=== PATIENT | female | born 1970 | race Asian ===

== ENCOUNTER 2016-08-21 12:11 | Inpatient (IN) | payer OTHER ==
[~2016-08-21] VITALS: Ht 162.6 cm; Wt 46.6 kg
[2016-08-21] MEDS ORDERED: SODIUM CHLORIDE 0.9% 1,000 ML IV ONE (12:34)
[2016-08-21] MEDS ORDERED: FAMOTIDINE 20 MG/2 ML ONE (12:46)
[2016-08-21] MEDS ORDERED: MAALOX/HYOSCYAMINE/LIDOCAINE 45 ML BOTTLE ONE (12:46)
[2016-08-21] MEDS ORDERED: MORPHINE SULFATE 4 MG/ML, 1ML ONE ×2 (12:46→13:33)
[2016-08-21] MEDS: MORPHINE SULFATE 4 MG/ML, 1ML IVPush PRN ×4 (12:54→21:00)
[2016-08-21] MEDS ORDERED: ONDANSETRON 2MG/ML, 2ML ONE (12:55)
[2016-08-21] MEDS ORDERED: FAMOTIDINE 20 MG/2 ML IVP ONE (13:00)
[2016-08-21] MEDS ORDERED: MAALOX/HYOSCYAMINE/LIDOCAINE 45 ML BOTTLE PO ONE (13:00)
[2016-08-21] MEDS ORDERED: ONDANSETRON 2MG/ML, 2ML IVPush ONE (13:00)
[2016-08-21 14:04] LABS: ASPARTATE AMINO TRANSFERASE 32 U/L (15-37); BLOOD UREA NITROGEN 13 mg/dL (7-18)
[2016-08-21 14:08] LABS: DIFF TOTAL CELLS COUNTED 100 CELL DIFF
[2016-08-21 14:18] LABS: ANISOCYTOSIS 1+
[2016-08-21 16:26] VITALS: BP 160/94
[2016-08-21 16:29] VITALS: BP 160/94
[2016-08-21] MEDS ORDERED: DOCUSATE 100 MG CAPSULE PO PRN (17:30)
[2016-08-21] MEDS ORDERED: BISACODYL 10 MG SUPP PR PRN (17:30)
[2016-08-21] MEDS ORDERED: ACETAMINOPHEN 325 MG TABLET PO PRN (17:30)
[2016-08-21] MEDS ORDERED: FENO145T32 PO (17:39)
[2016-08-21] MEDS ORDERED: METF10002 PO (17:39)
[2016-08-21] MEDS ORDERED: SIMV10TA3 PO (17:39)
[2016-08-21] MEDS ORDERED: GABA100C8 PO (17:39)
[2016-08-21] MEDS ORDERED: POTASSIUM CHLORIDE 20 MEQ TAB.ER.PRT PO ONE (18:00)
[2016-08-21] MEDS ORDERED: LABETALOL 5MG/ML, 20ML IVPush PRN (18:00)
[2016-08-21] MEDS: ENOXAPARIN 40 MG/0.4 ML SQ SCH (18:40)
[2016-08-21] MEDS: SODIUM CHLORIDE 0.9% 1,000 ML IV SCH (18:40)
[2016-08-21] MEDS: INSULIN REGULAR 100 UNITS/ML, 3ML VIAL SQ-INSULIN SCH ×2 (18:41→21:00)
[2016-08-21 20:30] VITALS: BP 166/84
[2016-08-21] MEDS: LACTOBACILLUS 1GM/ PACKET PO SCH (21:00)
[2016-08-21] MEDS: GABAPENTIN 100 MG CAPSULE PO SCH (21:01)
[2016-08-21] MEDS: metFORMIN 500 MG TABLET PO SCH (21:01)
[2016-08-22] MEDS: MORPHINE SULFATE 4 MG/ML, 1ML IVPush PRN ×4 (00:31→21:08)
[2016-08-22 01:32] VITALS: BP 122/67
[2016-08-22] MEDS: LACTOBACILLUS 1GM/ PACKET PO SCH ×4 (05:19→21:08)
[2016-08-22 07:05] LABS: ASPARTATE AMINO TRANSFERASE 19 U/L (15-37)
[2016-08-22 07:22] VITALS: BP 129/77
[2016-08-22 07:23] LABS: BLOOD UREA NITROGEN 5 mg/dL (7-18)
[2016-08-22] MEDS: metFORMIN 500 MG TABLET PO SCH ×2 (07:29→21:08)
[2016-08-22] MEDS: FENOFIBRATE 145 MG TABLET PO SCH (07:29)
[2016-08-22] MEDS: INSULIN REGULAR 100 UNITS/ML, 3ML VIAL SQ-INSULIN SCH ×4 (07:30→21:07)
[2016-08-22 10:21] LABS: HEMOGLOBIN 17.5 g/dL (11.7-16.4)
[2016-08-22] MEDS ORDERED: POTASSIUM CHLORIDE 20 MEQ TAB.ER.PRT PO ONE (10:30)
[2016-08-22 10:43] LABS: DIFF TOTAL CELLS COUNTED 100 CELL DIFF
[2016-08-22 10:45] LABS: ANISOCYTOSIS 1+; VERIFY COUNTS? YES
[2016-08-22] MEDS: SODIUM CHLORIDE 0.9% 1,000 ML IV SCH ×2 (11:38→17:46)
[2016-08-22 13:36] VITALS: BP 153/91
[2016-08-22] MEDS: ENOXAPARIN 40 MG/0.4 ML SQ SCH (16:29)
[2016-08-22 18:57] VITALS: BP 128/79
[2016-08-22] MEDS: GABAPENTIN 100 MG CAPSULE PO SCH (21:00)
[2016-08-22] MEDS ORDERED: ONDANSETRON 2MG/ML, 2ML IVPush PRN (21:00)
[2016-08-22] MEDS ORDERED: SIMVASTATIN 10 MG TABLET PO SCH (21:00)
[2016-08-23] MEDS: SODIUM CHLORIDE 0.9% 1,000 ML IV SCH ×2 (00:43→08:59)
[2016-08-23 02:59] VITALS: BP 112/71
[2016-08-23] MEDS: LACTOBACILLUS 1GM/ PACKET PO SCH ×2 (05:14→11:29)
[2016-08-23] MEDS: MORPHINE SULFATE 4 MG/ML, 1ML IVPush PRN ×3 (06:17→13:31)
[2016-08-23 06:55] VITALS: BP 111/66
[2016-08-23] MEDS: INSULIN REGULAR 100 UNITS/ML, 3ML VIAL SQ-INSULIN SCH ×2 (07:31→11:33)
[2016-08-23] MEDS: metFORMIN 500 MG TABLET PO SCH (07:32)
[2016-08-23] MEDS: FENOFIBRATE 145 MG TABLET PO SCH (07:32)
[2016-08-23 12:19] LABS: HEMOGLOBIN 15.2 g/dL (11.7-16.4)
[2016-08-23 12:24] LABS: BLOOD UREA NITROGEN 6 mg/dL (7-18)
[2016-08-23 12:38] LABS: DIFF TOTAL CELLS COUNTED 100 CELL DIFF
[2016-08-23 12:40] LABS: VERIFY COUNTS? YES
[2016-08-23 12:53] VITALS: BP 144/86
[2016-08-23 13:10] LABS: ASPARTATE AMINO TRANSFERASE 52 U/L (15-37)
[2016-08-23] MEDS ORDERED: OMEG1CAP6 PO (13:54)
[2016-08-23] MEDS ORDERED: ASPI-621 PO (14:03)
[2016-08-23] MEDS ORDERED: SIMV10TA3 PO (14:07)
== END 2016-08-23 16:06 | disposition home or self-care (01) | DRG 444 ==
LOC: ED 13:45 → EDIP 15:36 → 3NE 16:06 → DCLOUNGE 08-23 15:53
PROVIDERS: ADMIT Internal Medicine; ATTEND Internal Medicine
PROC: 0T9B70Z Drainage of Bladder with Drainage Device, Via Natural or Artificial Opening (ICD-10-PCS; principal; 2016-08-21)
DX: K80.20 Calculus of gallbladder without cholecystitis without obstruction (principal); K85.90 Acute pancreatitis without necrosis or infection, unspecified; E87.1 Hypo-osmolality and hyponatremia; E78.1 Pure hyperglyceridemia; E87.6 Hypokalemia; Z66 Do not resuscitate; K52.9 Noninfective gastroenteritis and colitis, unspecified; K21.9 Gastro-esophageal reflux disease without esophagitis; E88.81 Metabolic syndrome and other insulin resistance; I10 Essential (primary) hypertension; E11.42 Type 2 diabetes mellitus with diabetic polyneuropathy; E78.00 Pure hypercholesterolemia, unspecified; E78.5 Hyperlipidemia, unspecified; E86.1 Hypovolemia; K76.0 Fatty (change of) liver, not elsewhere classified; E11.65 Type 2 diabetes mellitus with hyperglycemia
CPT/HCPCS: 36415; 74000; 76700; 80053; 80061; 81001; 82962; 83036; 83690; 83735; 84100; 84443; 85025; 85610; 86704; 86706; 86708; 86803; 87086; 87147; 87340; 96361; 96374; 96375; J1650; J1815; J2405; J7030; S0028

== ENCOUNTER 2016-11-29 20:59 | Emergency (ER) | payer OTHER ==
[~2016-11-29] VITALS: Ht 162.6 cm; Wt 56.0 kg
[~2016-11-29 20:59] MED LIST: ASPI-621 PO; FENO145T32 PO; GABA-826 PO; METF10002 PO; OMEG1CAP6 PO; SIMV10TA3 PO
[2016-11-29] MEDS ORDERED: MORPHINE SULFATE 4 MG/ML, 1ML ONE ×2 (22:22→23:44)
[2016-11-29] MEDS ORDERED: ONDANSETRON 2MG/ML, 2ML ONE (22:22)
[2016-11-29] MEDS: MORPHINE SULFATE 4 MG/ML, 1ML IVPush PRN ×2 (22:25→23:46)
[2016-11-29] MEDS ORDERED: ONDANSETRON 2MG/ML, 2ML IVPush ONE (22:30)
[2016-11-29 22:50] LABS: BLOOD UREA NITROGEN 17 mg/dL (7-18)
[2016-11-29 23:19] LABS: ASPARTATE AMINO TRANSFERASE 145 U/L (15-37)
[2016-11-29 23:48] VITALS: BP 137/70
== END 2016-11-30 00:29 | disposition home or self-care (01) ==
LOC: ED 23:23
DX: K80.70 Calculus of gallbladder and bile duct without cholecystitis without obstruction (principal); E78.00 Pure hypercholesterolemia, unspecified; K21.9 Gastro-esophageal reflux disease without esophagitis; E11.9 Type 2 diabetes mellitus without complications
CPT/HCPCS: 36415; 76700; 80053; 83690; 84132; 84460; 85025; 93005; 96374; 96375; 96376; 99285; J2405